=== PATIENT | female | born 1990 | race African-American/Black ===

== ENCOUNTER 2016-12-23 17:08 | Emergency (ER) | payer SELFPAY ==
[~2016-12-23] VITALS: Ht 172.7 cm; Wt 62.1 kg
[2016-12-23 18:18] LABS: AMORPHOUS SEDIMENT,UR PRESENT /HPF; BACTERIA,URINE FEW /HPF (0-FEW); BILIRUBIN,URINE NEG (NEG); CLARITY,URINE CLEAR; COLOR,URINE YELLOW; GLUCOSE,URINE NEG (NEG); NITRITE,URINE NEG (NEG); RBC,URINE OCC /HPF (0-2); SQUAMOUS EPITHELIAL CELL,UR OCC /LPF; UROBILINOGEN,URINE 2 mg/dL (0.2 mg/dL)
[2016-12-23 18:40] VITALS: BP 121/59
--- NOTE | 2016-12-23 18:42 | PHYS DOC ---
General Chief Complaint: PAIN ON URINATION Stated Complaint: POSITIVE TESTS/ BURNING WHILE URINATING Time Seen by MD: 18:09 Source: patient Exam Limitations: no limitations Problems: History of Present Illness Initial Comments Patient is a 26-year-old female who comes in the ED for confirmation. Patient states that she had a positive home test last menstrual period was November 14 she is 1 now para 2. She's also had some breast tenderness symptoms are consistent with her prior 2 uneventful pregnancies. Patient is typically a smoker but says once she had a positive tests she has stopped smoking she does not take vitamins. She says she recently relocated locally and does not have an [employer]. She's had urinary frequency no dysuria hematuria fever chills nausea vomiting and scant whitish vaginal discharge without dyspareunia itching or odor/irritation. She says her primary reason for coming is to get official documentation of her so she can get light duty activity at her employer. Timing/Duration: unsure Severity: mild Modifying Factors: improves with other Associated Symptoms: other Allergies: Coded Allergies: Penicillins (Verified Allergy, Intermediate, Unknown, 12/23/16) Past Medical History Medical History: no pertinent history Surgical History: noncontributory Para: 2 : 3 LMP (Females 10-50): (last menstrual period November 14) Social History Smoker: cigarettes ( she quit once she had a positive test) Alcohol: none Drugs: none Review of Systems Constitutional: denies chills, denies diaphoresis, denies fever, denies malaise Respiratory: denies cough, denies shortness of breath Cardiovascular: denies chest pain, denies palpitations Gastrointestinal: see HPI, denies constipation, denies diarrhea, denies nausea , denies vomiting Genitourinary: see HPI Musculoskeletal: denies back pain, denies joint swelling, denies neck pain Psychiatric/Neurological: denies headache, denies numbness, denies paresthesia Physical Exam General Appearance: WD/WN, no apparent distress Ear, Nose, Throat: hearing grossly normal, normal ENT inspection Neck: non-tender, supple Respiratory: normal breath sounds, no respiratory distress Cardiovascular: normal peripheral pulses, regular rate, rhythm Gastrointestinal: normal bowel sounds, non tender, soft Back: no CVA tenderness, no vertebral tenderness Extremities: non-tender, normal inspection, no pedal edema 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 Departure Time of Disposition: 18:38 Disposition: 01 HOME, SELF-CARE Diagnosis: Condition: GOOD Patient Instructions: ABCs of , Medicines During Additional Instructions: Activity as tolerated. Take vitamins, start today. Aggressive hydration with gatorade, water. Per your request, ED staff will provide you information regarding [facility] and [facility]. Call Sunday to see if either of these can assist you. Also, ED staff will provide you the name and contact information for the [employer] cafeteria monitor. Call Sunday to schedule initial OB evaluation. Return to ED with new or changing symptoms. ROHAN LAW DO Dec 23, 2016 18:42
== END 2016-12-23 18:50 | disposition home or self-care (01) ==
LOC: ER 17:08
DX: Z32.01 Encounter for pregnancy test, result positive (principal); R35.0 Frequency of micturition; Z87.891 Personal history of nicotine dependence; Z88.0 Allergy status to penicillin
CPT/HCPCS: 81001; 81025; 99283